=== PATIENT | female | born 1985 | race Caucasian/White ===

== ENCOUNTER 2021-02-28 05:50 | Day surgery (SDC) | payer SELFPAY ==
[2021-02-28] MEDS ORDERED: CELECOXIB 100 MG CAPSULE PO ONE (06:30)
[2021-02-28] MEDS ORDERED: ACETAMINOPHEN 500 MG TAB PO ONE (06:30)
[2021-02-28] MEDS ORDERED: ACETAMINOPHEN 500 MG TAB ONE (06:40)
[2021-02-28] MEDS ORDERED: CELECOXIB 100 MG CAPSULE ONE (06:40)
[2021-02-28] MEDS ORDERED: CEFAZOLIN/SWI 1gm 1 GM/10 ML SYR ONE (06:40)
[2021-02-28] MEDS ORDERED: Ringers Lactate 1,000 ML IV ONE (06:40)
[2021-02-28] MEDS ORDERED: propofoL 200 MG/20 ML VIAL IV ONE (07:23)
[2021-02-28] MEDS ORDERED: FENTANYL CITR 100 MCG/2 ML ONE ×2 (07:23→08:02)
[2021-02-28] MEDS ORDERED: ROCURONIUM 50 MG/5 ML VIAL IV ONE (07:23)
[2021-02-28] MEDS ORDERED: MIDAZOLAM HCL 2 MG/2 ML INJ ONE (07:23)
[2021-02-28] MEDS ORDERED: LIDOCAINE 1% MPF 5 ML VIAL ONE (07:23)
[2021-02-28] MEDS: BUPIVACAINE 0.25% PF 30 ML VIAL ONE ×2 (07:36→07:49)
[2021-02-28] MEDS ORDERED: KETOROLAC 30 MG/ML INJ ONE (08:03)
[2021-02-28] MEDS ORDERED: dexAMETHasone 10 MG/ML VIAL ONE (08:03)
[2021-02-28] MEDS ORDERED: ONDANSETRON 4 MG/2 ML VIAL ONE (08:03)
[2021-02-28] MEDS ORDERED: GLYCOPYRROLATE 0.2 MG/ML SYR ONE (08:15)
[2021-02-28] MEDS ORDERED: NEOSTIGMINE 1 MG/ML -5 ML ONE (08:18)
--- NOTE | 2021-02-28 08:32 | P.OP ---
Neurology Technologist: NAIF RAHMAN Preoperative diagnosis: Acute on Chronic Appendicitis Postoperative diagnosis: Acute on Chronic Appendicitis Primary procedure: Laparoscopic Appendectomy Anesthesia: GETA + Local Estimated blood loss: <10cc Specimen: Vermiform Appendix Findings: Periappendiceal abscess, appy fixed to small bowel -ileum Complications: None Transferred to: Recovery Room Condition: Good
[2021-02-28] MEDS: FENTANYL CITR 100 MCG/2 ML ONE ×4 (08:52→09:18)
[2021-02-28 09:37] VITALS: BP 121/73; TEMP 96.3; O2SAT 99
[2021-02-28] MEDS ORDERED: HYDROCODONE/APAP 7.5/325 MG TAB ONE (10:00)
--- NOTE | 2021-02-28 12:30 | OP ---
Date of Procedure: 02/28/2021 Surgeon: Alexander Rajput MD, Preoperative Diagnosis: Acute on chronic appendicitis. Postoperative Diagnosis: Acute on chronic appendicitis. Procedure Performed: Laparoscopic appendectomy. Anesthesia: General endotracheal plus local. Estimated Blood Loss: Less than 10 mL. Specimen: Vermiform appendix. Findings: Periappendiceal abscess on the medial aspect between small bowel and tip of the appendix. The appendix is nonperforated; however, there were thick adhesions between the appendix, which was d own low in the pelvis to the distal terminal ileum and small bowel as well as the lateral abdominal w all. In addition, there was fixation to the right fallopian tube, specifically near the fimbriae. Complications: None. Disposition: The patient was transferred to recovery room in good condition. Procedure In Detail: After informed consent was obtained, the patient was brought to the operating r oom, prepped and draped in the usual sterile fashion after adequate anesthesia was achieved. The inf raumbilical area was anesthetized with 0.25% Marcaine and sharply incised. A 5 mm 0-degree optical t rocar was introduced in the abdomen without evidence of complication. Insufflation was obtained to 1 5 mmHg at this time. There was no injury to vital structure upon entry to the abdomen. I then place d 2 additional trocars, 1 in the left lower quadrant and 1 in the right lower quadrant. Both of thes e 5 mm trocars were placed under direct visualization without evidence of complication. The umbilica l trocar was then up-sized to a 12 mm under direct visualization without evidence of complication. T he patient was positioned head down right side up position. Ratcheted graspers were used to the loca te the patient's cecum and following the tenia coli, I created a mesoappendiceal window under the con fluence of the appendiceal confluence. Once this was made, a mesoappendiceal window was created with a [place] retractor. I traced the appendix down deep into the pelvis. It was fixated to multiple points of contact, specifically on the lateral aspect. It was fixated to the peritoneal lining. On the medial aspect, it was fixed to the small bowel near the terminal ileum. Distally, it was fixed t o the fimbriae of the right fallopian tube. I performed blunt dissection circumferentially around th is area to mobilize the appendix and was found to be quite firm and fixed. Upon medial mobilization, a small abscess was encountered and suctioned out. This was between the small bowel and the appendi x. I irrigated the area copiously and inspected the small bowel. There was no obvious small bowel i nvolvement other than the inflammatory changes present. At this point, I brought the Endo DAYNE 35 fiordaliza e load and fired it across the base of the appendix at the confluence of the cecum with good approxim ation and good hemostasis at this point. I then took LigaSure and used the LigaSure to ligate the me soappendix through the mesenteric root of the appendix with good hemostasis. I then removed the appe ndix and placed in EndoCatch bag, removed through the umbilical trocar, sent off for pathologic exami [facility]. The area was copiously irrigated multiple times with approximately 2 L of saline. I irrigat ed the abdomen copiously and suctioned out until completely dry. No additional hemostatic maneuvers were required. There were no injury to vital structures and the staple line appeared to be good and intact. At this point, the patient was positioned back in neutral position. Remainder of the efflue nt was suctioned out of the pelvis. I then removed the umbilical trocar and closed the umbilical tro car site with a Mason-Ashley suture passer using 0 Vicryl in an interrupted fashion with good appo sition of tissues. The abdomen was completely desufflated under visualization with remaining trocars and all remaining trocars were removed. All skin incisions were copiously irrigated and closed with 4-0 Monocryl in a running fashion. Dermabond placed over top. The patient tolerated the procedure well without evidence of complication and transferred to PACU in good condition. All counts were correct at the end of the ca se. TK/MODL Voice ID: [id number] Report ID: [id number]
== END 2021-02-28 10:30 | disposition home or self-care (01) ==
LOC: OR 05:50
PROVIDERS: ATTEND Surgery
PROC: 0DTJ4ZZ Resection of Appendix, Percutaneous Endoscopic Approach (ICD-10-PCS; principal; 2021-02-28 07:30)
DX: K35.80 Unspecified acute appendicitis (principal); Z20.822 Contact with and (suspected) exposure to COVID-19
CPT/HCPCS: 81025; 88304; J0690; J1100; J2250; J2405; J2704; J2710; J3010; J7120; U0003